=== PATIENT | female | born 1970 | race Caucasian/White ===

== ENCOUNTER 2017-11-02 10:16 | Observation (INO) | payer BC, MEDICAID ==
[2017-11-02] MEDS: FAMOTIDINE 20 MG INJ IV (12:10)
[2017-11-02] MEDS: ONDANSETRON 4 MG INJ IV ×2 (12:10→17:01)
[2017-11-02] MEDS: SOD CHLORIDE 0.9% 1,000 ML IV ×2 (12:10→21:26)
[2017-11-02 12:59] LABS: ADD MAN DIFF? NO
[2017-11-02 13:07] LABS: BASOPHILS % 0.2 % (0.0-2.0); HEMATOCRIT 42.9 % (37.0-47.0); HEMOGLOBIN 14.5 g/dl (12.0-16.0); LYMPHOCYTES # 1.6 10^3/ul (0.8-2.9); LYMPHOCYTES % 32.7 % (15.0-51.0); MEAN CORPUSCULAR HEMOGLOBIN 28.6 pg (29.0-33.0); MEAN CORPUSCULAR HGB CONC 33.8 g/dl (32.0-37.0); MEAN CORPUSCULAR VOLUME 84.6 fl (82.0-101.0); MEAN PLATELET VOLUME 10.9 fl (7.4-10.4); MONOCYTE # 0.3 10^3/ul (0.3-0.9); MONOCYTES % 5.2 % (0.0-11.0); NEUTROPHIL # 2.9 10^3/ul (1.6-7.5); NEUTROPHILS % 61.7 % (39.0-77.0); PLATELET COUNT 186 10^3/UL (140-415); RED BLOOD COUNT 5.07 10^6/ul (4.20-5.40); RED CELL DISTRIBUTION WIDTH 12.1 % (11.5-14.5)
[2017-11-02 13:07] LABS: WHITE BLOOD COUNT 4.8 10^3/ul (4.8-10.8)
[2017-11-02 13:11] LABS: ADD UMIC YES; UR ASCORBIC ACID NEGATIVE (NEGATIVE); UR BACTERIA FEW /HPF (NONE SEEN); UR BILIRUBIN (Dip) NEGATIVE (NEGATIVE); UR BLOOD (Dip) 1+ mg/dL (NEGATIVE); UR CLARITY CLEAR (CLEAR); UR COLOR YELLOW (YELLOW); UR GLUCOSE (Dip) NEGATIVE (NEGATIVE); UR KETONES (Dip) NEGATIVE (NEGATIVE); UR LEUKOCYTE ESTERASE (Dip) NEGATIVE Leu/ul (NEGATIVE); UR NITRITE (Dip) NEGATIVE (NEGATIVE); UR RBC 1 /HPF (0-5); UR SPECIFIC GRAVITY (Dip) 1.004 (1.003-1.030); UR SQUAMOUS EPITHELIAL CELL FEW /HPF (FEW); UR TOTAL PROTEIN (Dip) NEGATIVE (NEGATIVE); UR UROBILINOGEN (Dip) NEGATIVE (NEGATIVE); UR WBC 3 /HPF (0-5)
[2017-11-02 13:28] LABS: ALANINE AMINOTRANSFERASE 26 IU/L (13-69); ALBUMIN 4.1 g/dl (3.3-4.9); ALBUMIN/GLOBULIN RATIO 1.13; ALKALINE PHOSPHATASE 62 IU/L (42-121); ANION GAP 13 (8-16); ASPARTATE AMINO TRANSFERASE 18 IU/L (15-46); BILIRUBIN,INDIRECT 0.4 mg/dl (0-1.1); BILIRUBIN,TOTAL 0.4 mg/dl (0.2-1.3); BLOOD UREA NITROGEN 4 mg/dl (7-20); CALCIUM 9.3 mg/dl (8.4-10.2); CARBON DIOXIDE 30 mmol/L (21-31); CHLORIDE 101 mmol/L (97-110); CREATININE 0.75 mg/dl (0.44-1.00); GLUCOSE 85 mg/dl (70-220); LIPASE 42 U/L (23-300); POTASSIUM 3.4 mmol/L (3.5-5.1); SODIUM 141 mmol/L (135-144); TOTAL PROTEIN 7.7 g/dl (6.1-8.1)
[2017-11-02 13:43] LABS: TROPONIN-I < 0.012 ng/ml (0.00-0.12)
[2017-11-02] MEDS ORDERED: ACETAMINOPHEN 325 MG TAB PO ×2 (16:00→17:00)
[2017-11-02] MEDS ORDERED: HYDROCODONE/APAP (5/325) TAB PO (17:00)
[2017-11-02] MEDS ORDERED: ONDANSETRON 4 MG INJ IV (17:00)
[2017-11-02] MEDS ORDERED: NACL 0.9% 3 ML SYG IV (17:00)
[2017-11-02] MEDS: POTASSIUM CHLORIDE (SR) 10 MEQ TAB PO (17:36)
[2017-11-02 18:00] LABS: HEMOGLOBIN A1C 4.9 % (0-5.9)
[2017-11-02 18:02] LABS: URIC ACID 4.7 mg/dl (3.1-7.9)
[2017-11-02 18:07] LABS: B-TYPE NATRIURETIC PEPTIDE 31 PG/ML (0-125)
[2017-11-02 18:56] LABS: ERYTHROCYTE SEDIMENTATION RATE 20 mm/Hr (0-20)
[2017-11-02 19:12] LABS: C-REACTIVE PROTEIN 16.6 mg/dl (0.0-0.9)
[2017-11-02 19:36] LABS: CREATINE KINASE 22 IU/L (23-200)
[2017-11-02 19:49] LABS: CK-MB < 0.22 ng/ml (0.0-2.4); TROPONIN-I < 0.012 ng/ml (0.00-0.12)
[2017-11-02 20:24] LABS: FREE T4 (FREE THYROXINE) 1.15 ng/dl (0.64-1.79)
[2017-11-03] MEDS: REGADENOSON 0.4 MG/5 ML SYG (09:10)
[2017-11-03] MEDS: BUPROPION (XL) 150 MG TAB PO (09:46)
[2017-11-03] MEDS: COLCHICINE 0.6 MG TAB PO (09:46)
[2017-11-03] MEDS: ASPIRIN 81 MG TAB PO (09:46)
[2017-11-03] MEDS: SOD CHLORIDE 0.9% 1,000 ML IV (11:18)
== END 2017-11-03 13:05 | disposition home health service (06) ==
LOC: FTE 10:16 → MS4 15:59
DX: R07.89 Other chest pain (principal); M04.1 Periodic fever syndromes; F32.9 Major depressive disorder, single episode, unspecified; M79.7 Fibromyalgia; Z82.49 Family history of ischemic heart disease and other diseases of the circulatory system
CPT/HCPCS: 71045; 78452; 80053; 81001; 81025; 82550; 82553; 83036; 83690; 83880; 84439; 84443; 84484; 84560; 85025; 85651; 86140; 93005; 93017; 93306; 96374; 96375; 96376; 99285-25; G0378